=== PATIENT | female | born 1975 | race Caucasian/White ===

== ENCOUNTER 2016-07-21 17:56 | Emergency (ER) | payer SELFPAY ==
--- NOTE | 2016-07-21 19:07 | RAD ---
LEFT FOOT THREE VIEWS 07/21/16 INDICATION: Pain. FINDINGS: The Lisfranc joint is maintained. Minimal scattered osteophytosis is present. No acute fracture. IMPRESSION: No acute osseous abnormality. POS: ELY
--- NOTE | 2016-07-21 19:07 | RAD ---
LEFT ANKLE THREE VIEWS 07/21/16 INDICATION: Pain. FINDINGS: There is soft tissue edema. Correlate clinically. No fracture or dislocation. IMPRESSION: No acute osseous abnormality. Soft tissue prominence. Correlate clinically. POS: ELY
--- NOTE | 2016-07-21 20:14 | ERRECORD ---
[facility] EMERGENCY RECORD HPI ANKLE (18:10 SHAN) CHIEF COMPLAINT: Patient presents for evaluation of injury, Patient presents for evaluation of slipped and injured left dorsal foot going almost to ankle about noon yesterday. HISTORIAN: History provided by patient. MECHANISM OF INJURY: Known mechanism. TIME COURSE: Sudden onset of symptoms. RELIEVED BY: Patient's condition relieved by nothing. ROS (18:11 SHAN) CONSTITUTIONAL: Negative constitutional review of systems, Historian denies chills, denies fever. EYES: Negative eye review of systems. ENT: Negative ears, nose, throat review of systems. CARDIOVASCULAR: Negative cardiovascular review of systems, Historian denies chest pain, denies palpitations. RESPIRATORY: Negative respiratory review of systems, Historian denies cough, denies shortness of breath. GI: Negative gastrointestinal review of systems, Historian denies abdominal pain, denies constipation, denies diarrhea. MUSCULOSKELETAL: c/o pain in left foot. SKIN: Negative skin review of systems. NEUROLOGIC: Negative neurologic review of systems. ENDOCRINE: Negative endocrine review of systems. HEMO/LYMPHATIC: Normal hematologic/lymphatic system review. PSYCHIATRIC: Negative psychiatric review of systems. NOTES: All other ROS is negative except as listed in HPI. PAST MEDICAL HISTORY MEDICAL HISTORY: Flu vaccine not up to date, Tetanus immunization up to date, Pneumococcal vaccine not up to date, Past medical history includes history of diabetes, history of hypertension, history of hypertension, which has been treated, Patient is compliant. (18:07 ER) FEMALE SURGICAL HISTORY: Surgical history of tubal ligation. (18:07 ER) PSYCHIATRIC HISTORY: Notes: anxiety. (18:07 ER) SOCIAL HISTORY: Patient denies alcohol use, Patient denies drug use, Patient has no smoking history, Lives at home, with family. 07/21/16. (18:07 ER) NOTES: I have reviewed and agree with the PMH/PSxH/FamHx/SocHx obtained by the nurse. (18:11 SHAN) KNOWN ALLERGIES No Known Drug Allergies (Unconfirmed) traMADol CURRENT MEDICATIONS metFORMIN: &a-1R&a+25V*p+0X*[id number]*c152B*c15G*c2P*p-0X&a-25V&a+1RName: Mena Pittman : 1975 F41 MedRec: [id number] AcctNum: [id number] Prepared: TueJul 21, 2016 18:51 by Interface Page 1 of 3 pMD [facility] EMERGENCY RECORD TABLET : Strength - 500 mg : ORAL Patient Dose: 1 tab(s) Oral 2 times a day. (18:04 ER) glyBURIDE: TABLET : Strength - 5 mg : ORAL Patient Dose: 1 tab(s) Oral once a day. (18:26 ER) atenolol: TABLET : Strength - 50 mg : ORAL Patient Dose: 1 tab(s) Oral once a day. (18:26 ER) VITAL SIGNS (18:08 ER) VITAL SIGNS: BP: 172/102, Pulse: 89, Resp: 18, Temp: 98.1 (Tympanic), Pain: 9, O2 sat: 97 on Room Air, Time: 07/21/2016 18:08. PHYSICAL EXAM (18:11 SHAN) CONSTITUTIONAL: Vital signs reviewed, Patient appears non toxic, Patient alert and oriented to person, place and time, Pt is in no apparent distress. HEAD: Head exam included findings of head atraumatic, normocephalic. EYES: Eye exam included findings of eyelids normal to inspection, Pupils equally round and reactive to light, Extraocular muscles intact. ENT: ENT exam normal, Nose exam normal, no nasal deformity, no bleeding from nares, Pharynx exam normal, Mouth exam normal, mucous membranes moist. NECK: Neck exam included findings of normal range of motion, Trachea midline. RESPIRATORY CHEST: Respiratory and chest exam normal, Breath sounds clear, No wheezing, No rales, Chest exam included findings of chest movement symmetrical, Chest expansion equal. CARDIOVASCULAR: Cardiovascular assessment normal, Cardiovascular exam included findings of heart rate regular rate and rhythm, Heart sounds normal. ABDOMEN FEMALE: Abdominal exam included findings of abdomen nontender, Bowel sounds normal, no mass, no pulsatile masses, no peritoneal signs. BACK: Back exam included findings of normal inspection, range of motion normal, no costovertebral angle tenderness. UPPER EXTREMITY: Upper extremity exam included findings of inspection normal, Range of motion normal. LOWER EXTREMITY: Lower extremity exam included findings of inspection normal, Range of motion normal. Left dorsal pad extractor tender, left distal ankle sore; no deformity or color change appreciated. NEURO: Neuro exam findings include patient oriented to person, place and time, Speech normal, no focal motor deficits, no focal sensory deficits. SKIN: Skin exam included findings of skin warm, dry, and normal in color. LYMPHATIC: Lymphatic exam normal. PSYCHIATRIC: Psychiatric exam included findings of patient &a-1R&a+25V*p+0X*[id number]*c152B*c15G*c2P*p-0X&a-25V&a+1RName: Mena Pittman : 1975 F41 MedRec: [id number] AcctNum: [id number] Prepared: TueJul 21, 2016 18:51 by Interface Page 2 of 3 pMD [facility] EMERGENCY RECORD oriented to person place and time, Normal affect. DOCTOR NOTES (18:36 SHAN) TEXT: x-rays negative; rigoberto wrap. Discussed. PROBLEM LIST No recorded problems DIAGNOSIS (18:38 SHAN) FINAL: PRIMARY: ankle and foot sprain. PRESCRIPTION (18:41 SHAN) Tylenol-Codeine #3: TABLET : 300 mg-30 mg : ORAL : Quantity: 1 Unit: tab(s) Route: ORAL Schedule: every 4 hours prn Dispense: 20 Unit: tab(s) May substitute. Refills: No Refills POTENTIAL ALLERGY REACTION: 'traMADol [tramadol/tramadol HCl]' Override Rationale: Benefits outweigh risks. NOTES: take only if needed; could cross react with the ultram allergy, can constipate, upset the stomach and cause drousiness. No Refills. DISPOSITION PATIENT: Disposition Type: Discharge, Disposition: *Discharge Home. (18:38 SHAN) Patient left the department. (18:50 ER) Jones: ER=Purnima Olea=MD Cody, Seferino &a-1R&a+25V*p+0X*f0720Q*c152B*c15G*c2P*p-0X&a-25V&a+1RName: Mena Pittman : 1975 F41 MedRec: [id number] AcctNum: [id number] Prepared: TueJul 21, 2016 18:51 by Interface Page 3 of 3 pMD MTDD
--- NOTE | 2016-07-21 20:34 | PICIS ---
[facility] EMERGENCY RECORD TRIAGE (TueJul 21, 2016 18:03 ER) PATIENT: NAME: Mena Pittman, AGE: 41, GENDER: female, : Tue1975, TIME OF GREET: TueJul 21, 2016 17:58, PREFERRED LANGUAGE: Luxembourger, ETHNICITY: Not or , ECODE BILLING MAP: [facility], SSN: [id number], Zip Code: [address], KG WEIGHT: 72.57, PHONE: , , , PERSON ID: [id number], PCP: JOCELYNN. (TueJul 21, 2016 18:03 ER) TRIAGE NOTES: LEFT ANKLE INJURY, YESTERDAY, MISSED A STEP. (TueJul 21, 2016 18:03 ER) COMPLAINT: RT FOOT INJURED. (TueJul 21, 2016 18:03 ER) ADMISSION: URGENCY: 4 Non Urgent, ADMISSION SOURCE: Home, TRANSPORT: Walk-in, BED: TRIAGE. (TueJul 21, 2016 18:03 ER) SIRS SCORING: Heart Rate 55-109 (0), Temp range 96.8-101.1 (0), respiratory rate 12-24 (0), Mental Status altered: no (0). (18:07 ER) TRIAGE SCREENING: Patient denies suicidal ideation, Patient denies presence of domestic violence. (18:07 ER) TREATMENTS IN PROGRESS: Treatments given Prehospital: IBUPROFEN X 4 AT 2PM. (18:07 ER) PROVIDERS: TRIAGE NURSE: Purnima Olea. (TueJul 21, 2016 18:03 ER) PREVIOUS VISIT ALLERGIES: No Known Drug Allergies. (TueJul 21, 2016 18:03 ER) No Known Drug Allergies. (18:07 ER) KNOWN ALLERGIES No Known Drug Allergies (Unconfirmed) traMADol CURRENT MEDICATIONS metFORMIN: TABLET : Strength - 500 mg : ORAL Patient Dose: 1 tab(s) Oral 2 times a day. (18:04 ER) glyBURIDE: TABLET : Strength - 5 mg : ORAL Patient Dose: 1 tab(s) Oral once a day. (18:26 ER) atenolol: TABLET : Strength - 50 mg : ORAL Patient Dose: 1 tab(s) Oral once a day. (18:26 ER) VITAL SIGNS (18:08 ER) VITAL SIGNS: BP: 172/102, Pulse: 89, Resp: 18, Temp: 98.1 (Tympanic), Pain: 9, O2 sat: 97 on Room Air, Time: 07/21/2016 18:08. NURSING ASSESSMENT: EXTREMITY LOWER (18:13 ER) CONSTITUTIONAL: Patient arrives ambulatory, Unsteady gait, UNSTEADY, DUE TO UNABLE TO APPLY PRESSURE TO LEFT FOOT, History obtained from patient, Patient appears comfortable, Patient cooperative, Patient alert, Oriented to person, place and time, Skin warm, Skin dry, Patient complains of LEFT FOOT INJURY. PAIN: aching pain, to the left ankle, Onset &a-1R&a+25V*p+0X*u5212I*c152B*c15G*c2P*p-0X&a-25V&a+1RName: Mena Pittman : 1975 F41 MedRec: [id number] AcctNum: [id number] Prepared: TueJul 21, 2016 18:51 by Interface Page 1 of 5 pMD [facility] EMERGENCY RECORD of pain YESTERDAY, constant, on a scale 0-10 patient rates pain as 9, Pain exacerbated by, ambulation, Pain relieved by, Ibuprofen. LEFT LOWER EXTREMITY: Left lower extremity assessment findings include capillary refill less than 2 seconds, Skin color normal, Skin temperature warm, Distal sensation intact, Muscle tone normal, muscle strength 5, dorsalis pedis pulse is +4, Inspection findings include signs of trauma, to LEFT ANKLE/FOOT, Inspection findings include swelling, to LEFT ANKLE/FOOT. RIGHT LOWER EXTREMITY: Right lower extremity assessment findings include capillary refill less than 2 seconds, Skin color normal, Skin temperature warm, Distal sensation intact, Muscle tone normal, muscle strength 5, dorsalis pedis pulse is +4. SAFETY: Side rails up, Cart/Stretcher in lowest position, Call light within reach, Hospital ID band on. NURSING PROCEDURE: DISCHARGE NOTE (18:48 ER) DISCHARGE: Patient discharged to home, ambulating without assistance, family driving, accompanied by other family member, Summary of Care printed/ provided, Patient requested and was provided an electronic copy of Discharge Instructions, Discharge instructions given to patient, Simple or moderate discharge teaching performed, Prescriptions given and instructions on side effects given, Name of prescription(s) given: TYLENOL WITH CODEINE, Above person(s) verbalized understanding of discharge instructions and follow-up care. BELONGINGS: Belongings remain with patient, Valuables remain with patient. NURSING PROCEDURE: SPLINTING (18:47 ER) PATIENT IDENTIFIER: Patient actively involved in identification process, Patient's identity verified by patient stating name, Patient's identity verified by patient stating date. SPLINTING: Splinting indicated for sprain care, Splint applied to, the left ankle, by ROSA RN, 3 inch rigoberto wrap applied. NURSING PROCEDURE: TRANSPORT TO TESTS PATIENT IDENTIFIER: Patient actively involved in identification process, Patient's identity verified by patient stating name, Patient's identity verified by patient stating date. (18:15 ER) TRANSPORT TO TESTS: Patient transported to x-ray, via wheelchair, Accompanied by x-ray gis technician. (18:15 ER) FOLLOW-UP: After procedure, patient returned to emergency department. (18:25 ER) SAFETY: Side rails up, Cart/Stretcher in lowest position, Call light within reach, Hospital ID band on. (18:15 ER) ORDER DETAILS Order Name: XR Ankle Lt 3 View STANDARD, Status: Active, Time: 18:06 &a-1R&a+25V*p+0X*o3724W*c152B*c15G*c2P*p-0X&a-25V&a+1RName: Mena Pittman : 1975 F41 MedRec: [id number] AcctNum: [id number] Prepared: TueJul 21, 2016 18:51 by Interface Page 2 of 5 pMD [facility] EMERGENCY RECORD 07/21/2016, User: WILLIAMS, - Ordered for: MD Ross Stanley, - Entered by: MD Ross Stanley - TueJul 21, 2016 18:06, - Quantity: 1, Order Name: XR Foot Lt 3 View STANDARD, Status: Active, Time: 18:06 07/21/2016, User: WILLIAMS, - Ordered for: MD Ross Stanley, - Entered by: MD Ross Stanley - TueJul 21, 2016 18:06, - Quantity: 1. HPI ANKLE (18:10 WILLIAMS) CHIEF COMPLAINT: Patient presents for evaluation of injury, Patient presents for evaluation of slipped and injured left dorsal foot going almost to ankle about noon yesterday. HISTORIAN: History provided by patient. MECHANISM OF INJURY: Known mechanism. TIME COURSE: Sudden onset of symptoms. RELIEVED BY: Patient's condition relieved by nothing. ROS (18:11 [facility]) CONSTITUTIONAL: Negative constitutional review of systems, Historian denies chills, denies fever. EYES: Negative eye review of systems. ENT: Negative ears, nose, throat review of systems. CARDIOVASCULAR: Negative cardiovascular review of systems, Historian denies chest pain, denies palpitations. RESPIRATORY: Negative respiratory review of systems, Historian denies cough, denies shortness of breath. GI: Negative gastrointestinal review of systems, Historian denies abdominal pain, denies constipation, denies diarrhea. MUSCULOSKELETAL: c/o pain in left foot. SKIN: Negative skin review of systems. NEUROLOGIC: Negative neurologic review of systems. ENDOCRINE: Negative endocrine review of systems. HEMO/LYMPHATIC: Normal hematologic/lymphatic system review. PSYCHIATRIC: Negative psychiatric review of systems. NOTES: All other ROS is negative except as listed in HPI. PAST MEDICAL HISTORY MEDICAL HISTORY: Flu vaccine not up to date, Tetanus immunization up to date, Pneumococcal vaccine not up to date, Past medical history includes history of diabetes, history of hypertension, history of hypertension, which has been treated, Patient is compliant. (18:07 ER) FEMALE SURGICAL HISTORY: Surgical history of tubal ligation. (18:07 ER) PSYCHIATRIC HISTORY: Notes: anxiety. (18:07 ER) SOCIAL HISTORY: Patient denies alcohol use, Patient denies drug use, Patient has no smoking history, Lives at home, with family. &a-1R&a+25V*p+0X*q3277V*c152B*c15G*c2P*p-0X&a-25V&a+1RName: Mena Pittman : 1975 F41 MedRec: [id number] AcctNum: [id number] Prepared: TueJul 21, 2016 18:51 by Interface Page 3 of 5 pMD [facility] EMERGENCY RECORD 07/21/16. (18:07 ER) NOTES: I have reviewed and agree with the PMH/PSxH/FamHx/SocHx obtained by the nurse. (18:11 [facility]) PHYSICAL EXAM (18:11 SHAN) CONSTITUTIONAL: Vital signs reviewed, Patient appears non toxic, Patient alert and oriented to person, place and time, Pt is in no apparent distress. HEAD: Head exam included findings of head atraumatic, normocephalic. EYES: Eye exam included findings of eyelids normal to inspection, Pupils equally round and reactive to light, Extraocular muscles intact. ENT: ENT exam normal, Nose exam normal, no nasal deformity, no bleeding from nares, Pharynx exam normal, Mouth exam normal, mucous membranes moist. NECK: Neck exam included findings of normal range of motion, Trachea midline. RESPIRATORY CHEST: Respiratory and chest exam normal, Breath sounds clear, No wheezing, No rales, Chest exam included findings of chest movement symmetrical, Chest expansion equal. CARDIOVASCULAR: Cardiovascular assessment normal, Cardiovascular exam included findings of heart rate regular rate and rhythm, Heart sounds normal. ABDOMEN FEMALE: Abdominal exam included findings of abdomen nontender, Bowel sounds normal, no mass, no pulsatile masses, no peritoneal signs. BACK: Back exam included findings of normal inspection, range of motion normal, no costovertebral angle tenderness. UPPER EXTREMITY: Upper extremity exam included findings of inspection normal, Range of motion normal. LOWER EXTREMITY: Lower extremity exam included findings of inspection normal, Range of motion normal. Left dorsal pyrotechnics press tender, left distal ankle sore; no deformity or color change appreciated. NEURO: Neuro exam findings include patient oriented to person, place and time, Speech normal, no focal motor deficits, no focal sensory deficits. SKIN: Skin exam included findings of skin warm, dry, and normal in color. LYMPHATIC: Lymphatic exam normal. PSYCHIATRIC: Psychiatric exam included findings of patient oriented to person place and time, Normal affect. EVENTS TRANSFER: Triage to Emergency Triage. (18:03 ER) Emergency Triage to Main ED -04. (18:05 ER) Removed from Emergency Main ED -04. (18:50 ER) DOCTOR NOTES (18:36 SHAN) TEXT: x-rays negative; rigoberto wrap. Discussed. &a-1R&a+25V*p+0X*g7683L*c152B*c15G*c2P*p-0X&a-25V&a+1RName: ToyaMena : 1975 F41 MedRec: [id number] AcctNum: [id number] Prepared: TueJul 21, 2016 18:51 by Interface Page 4 of 5 pMD [facility] EMERGENCY RECORD PROBLEM LIST No recorded problems DIAGNOSIS (18:38 SHAN) FINAL: PRIMARY: ankle and foot sprain. DISPOSITION PATIENT: Disposition Type: Discharge, Disposition: *Discharge Home. (18:38 SHAN) Patient left the department. (18:50 ER) INSTRUCTION (18:41 SHAN) DISCHARGE: FOOT SPRAIN. SPECIAL: 1. pain pills sparingly 2. ice pack and rigoberto wrap as needed 3. followup with regular provider in a few days 4. return if condition worsens. PRESCRIPTION (18:41 SHAN) Tylenol-Codeine #3: TABLET : 300 mg-30 mg : ORAL : Quantity: 1 Unit: tab(s) Route: ORAL Schedule: every 4 hours prn Dispense: 20 Unit: tab(s) May substitute. Refills: No Refills POTENTIAL ALLERGY REACTION: 'traMADol [tramadol/tramadol HCl]' Override Rationale: Benefits outweigh risks. NOTES: take only if needed; could cross react with the ultram allergy, can constipate, upset the stomach and cause drousiness. No Refills. IMAGING (18:49 ER) *DISCHARGE INSTRUCTIONS RECEIPT: Image captured from scanner. *SUPPLY CHARGE SHEET: Image captured from scanner. ADMIN (18:42 SHAN) DIGITAL SIGNATURE: MD Ross Stanley. Jones: ER=Purnima Olea=MD Ross Stanley &a-1R&a+25V*p+0X*r9275H*c152B*c15G*c2P*p-0X&a-25V&a+1RName: Mena Pittman : 1975 F41 MedRec: [id number] AcctNum: [id number] Prepared: TueJul 21, 2016 18:51 by Interface Page 5 of 5 pMD MTDD
== END 2016-07-21 18:48 | disposition home or self-care (01) ==
LOC: MADERS 17:56
DX: S93.402A Sprain of unspecified ligament of left ankle, initial encounter (principal); S93.602A Unspecified sprain of left foot, initial encounter; E11.9 Type 2 diabetes mellitus without complications; I10 Essential (primary) hypertension; F41.9 Anxiety disorder, unspecified; W01.0XXA Fall on same level from slipping, tripping and stumbling without subsequent striking against object, initial encounter
CPT/HCPCS: 99283

== ENCOUNTER 2017-08-09 15:56 | Emergency (ER) | payer SELFPAY ==
[2017-08-09 16:46] LABS: Bilirubin Negative (Negative); Blood, Urine Negative (Negative); Glucose, Urine (Dipstick) Negative (Negative); Leukocyte Small (Negative); Nitrite Negative (Negative); Protein, Urine (Dipstick) 30 mg/dL (Neg-Trace); Urobilinogen 0.2 mg/dL (0.2-1.0)
[2017-08-09 16:47] LABS: Clarity Slightly Cloudy (Clear)
[2017-08-09 16:48] LABS: Bacteria/HPF 3+ HPF (None Seen)
[2017-08-09 17:03] LABS: Pregnancy Test - Urine (BHCG) Negative (Negative); Pregu Control Background? CLEAR/WHITE (CLR/WHITE); Pregu Control Bar Appear? YES (CONTROL BAR)
[2017-08-09] MEDS ORDERED: Acetaminophen/Codeine 30-300mg Tablet ONE (17:07)
[2017-08-09] MEDS ORDERED: Nitrofurantoin Monohyd/M-Cryst 100 MG CAP ONE (17:08)
== END 2017-08-09 17:30 | disposition home or self-care (01) ==
LOC: MADERS 15:56
DX: N39.0 Urinary tract infection, site not specified (principal); E11.9 Type 2 diabetes mellitus without complications; I10 Essential (primary) hypertension; F41.9 Anxiety disorder, unspecified
CPT/HCPCS: 36416; 81003; 81015; 81025; 99283

== ENCOUNTER 2017-11-21 08:13 | Emergency (ER) | payer SELFPAY ==
[2017-11-21] MEDS ORDERED: Lidocaine 2% w/Epinephrine 1:200K 20 ML VIAL ONE (08:33)
[2017-11-21] MEDS ORDERED: Ketorolac Tromethamine 60 MG/2 ML VIAL ONE (08:34)
[2017-11-21] MEDS ORDERED: Lidocaine-Prilocaine 2.5% Cream 5 GM TUBE ONE (08:41)
[2017-11-21] MEDS ORDERED: Triple Antibiotic Oint 1 GM Packet ONE (09:45)
[2017-11-21] MEDS ORDERED: Sodium Chloride Irrig Solution 250 ML BOT ONE (09:57)
== END 2017-11-21 09:50 | disposition home or self-care (01) ==
LOC: MADERS 08:13
DX: L02.415 Cutaneous abscess of right lower limb (principal); L03.115 Cellulitis of right lower limb; L02.31 Cutaneous abscess of buttock; N76.4 Abscess of vulva; I10 Essential (primary) hypertension; E11.9 Type 2 diabetes mellitus without complications; F41.9 Anxiety disorder, unspecified; Z79.84 Long term (current) use of oral hypoglycemic drugs; Z79.899 Other long term (current) drug therapy
CPT/HCPCS: 10060; 56405; J1885

== ENCOUNTER 2018-10-19 11:43 | Emergency (ER) | payer SELFPAY ==
--- NOTE | 2018-10-19 12:26 | RAD ---
EXAM: Chest 2 views: HISTORY: Cough COMPARISON: 05/08/2016 FINDINGS: There is a normal-sized cardiomediastinal silhouette. There is no evidence of consolidation, mass, or pleural effusion. The bones are unremarkable. IMPRESSION: No evidence of acute cardiopulmonary disease
== END 2018-10-19 12:34 | disposition home or self-care (01) ==
LOC: MADERS 11:43
DX: J11.1 Influenza due to unidentified influenza virus with other respiratory manifestations (principal); E11.9 Type 2 diabetes mellitus without complications; I10 Essential (primary) hypertension; F41.9 Anxiety disorder, unspecified
CPT/HCPCS: 71046